=== PATIENT | female | born 1950 | race Caucasian/White ===

== ENCOUNTER 2016-11-07 10:50 | Day surgery (SDC) | payer OTHER ==
[~2016-11-07] VITALS: Ht 170.2 cm; Wt 76.6 kg
[~2016-11-07 10:50] MED LIST: ASPIRIN81 M2 PO; CALCIUM 250+D1 EACH PO; ENALAPRIL-HCTZ1 EACH PO; METFORMIN HCL500 MG PO; MULTIPLE VITAM1 EACH PO; OMEPRAZOLE40 M1 PO; ZOCOR80 MG PO
[2016-11-07 11:38] VITALS: BP 127/76
[2016-11-07 11:43] LABS: POINT-OF-CARE METER ID UU14174212
[2016-11-07 14:21] LABS: POINT-OF-CARE METER ID UU13113675
[2016-11-07 15:10] VITALS: BP 117/61
[2016-11-07 16:05] VITALS: BP 118/57
== END 2016-11-07 16:15 | disposition home or self-care (01) ==
LOC: SDC 10:50
PROVIDERS: Orthopaedic Surgery Hand Surgery
DX: M18.12 Unilateral primary osteoarthritis of first carpometacarpal joint, left hand (principal); M19.042 Primary osteoarthritis, left hand; M79.642 Pain in left hand; E11.9 Type 2 diabetes mellitus without complications; E78.5 Hyperlipidemia, unspecified; I25.10 Atherosclerotic heart disease of native coronary artery without angina pectoris; I25.2 Old myocardial infarction; I10 Essential (primary) hypertension; Z85.828 Personal history of other malignant neoplasm of skin; Z79.84 Long term (current) use of oral hypoglycemic drugs
CPT/HCPCS: 82948; C1769; J0690; J1170; J2250; J2405; J3010; S0020